=== PATIENT | male | born 1955 | race American Indian/Alaskan Native ===

== ENCOUNTER 2017-09-03 08:40 | Inpatient (IN) | payer MEDICARE ==
--- NOTE | 2017-09-03 10:25 | XRay Report ---
ROUTINE CHEST, TWO VIEWS: HISTORY: Shortness of breath. No comparison. Previous CABG changes. Borderline to mild cardiomegaly and small bilateral pleural effusions are identified. Pulmonary vascularity is within normal limits. Mild atelectatic changes are noted in both lower lobes. No convincing pneumonia or pneumothorax. The bony structures are grossly intact. IMPRESSION: Mild CHF. Mild bibasilar atelectasis.
[2017-09-03 10:49] LABS: Hematocrit 38.4 % (35.5-45.6); Hemoglobin 11.9 gm/dl (11.8-15.2); Mean Corpuscular HGB Conc 31 % (32-34); Mean Corpuscular Volume 83 fl (84-94); Platelet Count 140 K/mm3 (140-440); Red Blood Count 4.65 M/mm3 (3.65-5.03); Red Cell Distribution Width 16.7 % (13.2-15.2)
[2017-09-03 10:51] LABS: Mean Corpuscular Hemoglobin 26 pg (28-32)
[2017-09-03 11:01] LABS: Calcium 9.2 mg/dL (8.4-10.2)
[2017-09-03] MEDS ORDERED: LASIX IV ONE (11:16)
[2017-09-03] MEDS ORDERED: APRESOLINE IV ONE ×2 (11:16→14:18)
[2017-09-03 12:47] LABS: Total Cells Counted 100
[2017-09-03 12:48] LABS: Platelet Estimate Consistent w Auto; Poikilocytosis 1+; Target Cells Rare
[2017-09-03] MEDS ORDERED: BABY ASPIRIN PO ONE (14:19)
--- NOTE | 2017-09-03 14:19 | Emergency Department Report ---
HPI - General Chief Complaint: Dyspnea/Respdistress Time Seen by Provider: 09/03/17 10:48 - HPI HPI: The patient is a 61-year-old male who presents for evaluation of dyspnea. The patient has a history of congestive heart failure. The patient reports constant and severe dyspnea for the past one day, exacerbated with exertion or lying flat, improved with sitting up. He also reports associated bilateral lower leg swelling. The patient has fever, trauma to the chest, syncope, hemoptysis, unilateral leg swelling, recent immobilization, history of DVT or PE , hx of recent cancer. ED Past Medical Hx - Past Medical History Previous Medical History?: Yes Hx Hypertension: Yes Hx CVA: Yes (11/2016) Hx Heart Attack/AMI: Yes (bypass x5, stents x3) - Surgical History Past Surgical History?: No - Social History Smoking Status: Never Smoker Substance Use Type: None ED Review of Systems ROS: Stated complaint: DIFFICULTY BREATHING Other details as noted in HPI Constitutional: denies: fever ENT: denies: throat or neck pain Respiratory: reports shortness of breath Cardiovascular: denies: chest pain Endocrine: denies unexplained weight loss or gain Gastrointestinal: denies: abdominal pain, nausea Genitourinary: denies: dysuria Musculoskeletal: reports leg swelling Skin: denies: rash Neurological: denies: headache Hematological/Lymphatic: denies: easy bleeding or easy bruising Psych: denies sadness or hopelessness Physical Exam - Physical Exam Vital Signs: Vital Signs 09/03/17 09/03/17 09/03/17 09:22 09:50 11:45 Temperature 98 F 97.8 F Pulse Rate 56 L 55 L 55 L Respiratory 18 16 Rate Blood Pressure 157/109 160/107 Blood Pressure 168/108 [Left] O2 Sat by Pulse 95 100 Oximetry Physical Exam: General: well-nourished, well-developed, no acute distress Head: Normocephalic, atraumatic Eyes: normal sclera ENT: Mucous membranes are pale and dry Neck: No neck stiffness, no cervical adenopathy Respiratory: Diminished breath sounds and bibasilar crackles present, no costal traction, no respiratory distress Cardio: S1 and S2 present, no murmurs, rubs, gallops, capillary refill is delayed Abdomen: Normoactive bowel sounds, soft abdomen, no rigidity, no guarding or rebound tenderness Chest WALL/Back: No tenderness to palpation of the chest wall, no CVA tenderness with percussion Musc: 1+ pitting edema of bilateral legs present Skin: No rash Neuro: no facial drooping, normal speech Psych: Normal affect ED Course Vital Signs 09/03/17 09/03/17 09/03/17 09:22 09:50 11:45 Temperature 98 F 97.8 F Pulse Rate 56 L 55 L 55 L Respiratory 18 16 Rate Blood Pressure 157/109 160/107 Blood Pressure 168/108 [Left] O2 Sat by Pulse 95 100 Oximetry ED Medical Decision Making - Lab Data Result diagrams: 09/03/17 10:09 09/03/17 10:09 - Medical Decision Making The patient was seen and examined by myself. The patient is placed on a cafeteria monitor and continuous pulse ox. On initial evaluation, the patient was found to be in no distress. EKG was negative for findings suggestive of acute cardiac infarct. The patient is given IV hydralazine for elevated blood pressure. Labs and imaging are obtained. Chest x-ray exhibits pulmonary vascular congestion consistent with acute congestive heart failure. Lab results exhibit elevated BNP, and otherwise are were non-revealing including negative troponin, WBC, hemogloin. The patient is given IV Lasix for treatment of his congestive heart failure. Reevaluation the patient remained symptomatic with elevated blood pressure. The patient given additional IV hydralazine. As patient remained symptomatic. Admitted for continued diuresis, close monitoring , and potential evaluation by cardiology. The on-call hospitalist service was contacted. Dr. Purvis agreed to admit the patient for further treatment and close monitoring. The ED admit order was placed. The patient was admitted in guarded condition. Critical care attestation.: If time is entered above; I have spent that time in minutes in the direct care of this critically ill patient, excluding procedure time. ED Disposition Clinical Impression: Acute systolic congestive heart failure, Hypertensive emergency Disposition: OP ADMIT IP TO THIS HOSP Is pt being admited?: Yes Does the pt Need Aspirin: Yes Condition: Stable Instructions: Heart Failure (ED), Hypertension (ED) Referrals: PRIMARY CARE, [Primary Care Provider] - 3-5 Days Time of Disposition: 13:18
--- NOTE | 2017-09-03 22:56 | History and Physical Report ---
History of Present Illness Date of examination: 09/03/17 Date of admission: 09/03/17 15:40 Chief complaint: Chief complaint: Increasing shortness of breath for the last 2 days History of present illness: ORESTES: 51-year-old male comes in for increasing shortness of breath for the last 1 day. Patient is a history of coronary artery disease cerebrovascular accident and hypertension. Patient with increasing shortness of breath over the last 2 days. Patient is class IV symptoms of NYHA. Also orthopneic. No cough no fever no chills. No chest pain. Past Medical History Previous Medical History?: Yes Hx Hypertension: Yes Hx CVA: Yes (11/2016) Hx Heart Attack/AMI: Yes (bypass x5, stents x3) Surgical History Past Surgical History?: No Social History Smoking Status: Never Smoker Substance Use Type: None Family History Htn Review of Systems ROS: Stated complaint: DIFFICULTY BREATHING Other details as noted in HPI Constitutional: denies: fever ENT: denies: throat or neck pain Respiratory: reports shortness of breath Cardiovascular: denies: chest pain Endocrine: denies unexplained weight loss or gain Gastrointestinal: denies: abdominal pain, nausea Genitourinary: denies: dysuria Musculoskeletal: reports leg swelling Skin: denies: rash Neurological: denies: headache Hematological/Lymphatic: denies: easy bleeding or easy bruising Psych: denies sadness or hopelessness Medications and Allergies Allergies Allergy/AdvReac Type Severity Reaction Status Date / Time No Known Allergies Allergy Unverified 09/03/17 09:28 Exam - Physical Exam Narrative exam: Lying in bed in slight distress - Constitutional Vitals: Temp Pulse Resp BP Pulse Ox 98.1 F 58 L 20 138/91 99 09/03/17 19:50 09/03/17 19:50 09/03/17 19:50 09/03/17 19:50 09/03/17 19:50 General appearance: Present: no acute distress, mild distress, well-nourished - EENT Eyes: Present: PERRL ENT: hearing intact, clear oral mucosa - Neck Neck: Present: supple, normal ROM - Respiratory Respiratory effort: normal Respiratory: bilateral: CTA, rales, rhonchi - Cardiovascular Heart rate: 80 Rhythm: regular Heart Sounds: Present: S1 & S2. Absent: rub, click - Extremities Extremities: no ischemia, pulses intact, pulses symmetrical, No edema Peripheral Pulses: within normal limits - Abdominal General gastrointestinal: Present: soft, non-tender, non-distended, normal bowel sounds Male genitourinary: Present: normal - Rectal Rectal Exam: deferred - Integumentary Integumentary: Present: clear, warm, dry - Musculoskeletal Musculoskeletal: gait normal, strength equal bilaterally - Psychiatric Psychiatric: appropriate mood/affect, intact judgment & insight - Neurologic Neurologic: CNII-XII intact, moves all extremities - Allied Health Allied health notes reviewed: nursing, case management Results - Labs CBC & Chem 7: 09/03/17 10:09 09/03/17 10:09 Labs: Laboratory Last Values WBC 4.8 K/mm3 (4.5-11.0) 09/03/17 10:09 RBC 4.65 M/mm3 (3.65-5.03) 09/03/17 10:09 Hgb 11.9 gm/dl (11.8-15.2) 09/03/17 10:09 Hct 38.4 % (35.5-45.6) 09/03/17 10:09 MCV 83 fl (84-94) L 09/03/17 10:09 MCH 26 pg (28-32) L 09/03/17 10:09 MCHC 31 % (32-34) L 09/03/17 10:09 RDW 16.7 % (13.2-15.2) H 09/03/17 10:09 Plt Count 140 K/mm3 (140-440) 09/03/17 10:09 Lewis % (Auto) Ethnographic Materials Conservator 09/03/17 10:09 Add Manual Diff Complete 09/03/17 10:09 Total Counted 100 09/03/17 10:09 Seg Neuts % (Manual) 73.0 % (40.0-70.0) H 09/03/17 10:09 Band Neutrophils % 0 % 09/03/17 10:09 Lymphocytes % (Manual) 15.0 % (13.4-35.0) 09/03/17 10:09 Reactive Lymphs % (Man) 1.0 % 09/03/17 10:09 Monocytes % (Manual) 8.0 % (0.0-7.3) H 09/03/17 10:09 Eosinophils % (Manual) 2.0 % (0.0-4.3) 09/03/17 10:09 Basophils % (Manual) 1.0 % (0.0-1.8) 09/03/17 10:09 Metamyelocytes % 0 % 09/03/17 10:09 Myelocytes % 0 % 09/03/17 10:09 Promyelocytes % 0 % 09/03/17 10:09 Blast Cells % 0 % 09/03/17 10:09 Nucleated RBC % Not Reportable 09/03/17 10:09 Seg Neutrophils # Man 3.5 K/mm3 (1.8-7.7) 09/03/17 10:09 Band Neutrophils # 0.0 K/mm3 09/03/17 10:09 Lymphocytes # (Manual) 0.7 K/mm3 (1.2-5.4) L 09/03/17 10:09 Abs React Lymphs (Man) 0.0 K/mm3 09/03/17 10:09 Monocytes # (Manual) 0.4 K/mm3 (0.0-0.8) 09/03/17 10:09 Eosinophils # (Manual) 0.1 K/mm3 (0.0-0.4) 09/03/17 10:09 Basophils # (Manual) 0.0 K/mm3 (0.0-0.1) 09/03/17 10:09 Metamyelocytes # 0.0 K/mm3 09/03/17 10:09 Myelocytes # 0.0 K/mm3 09/03/17 10:09 Promyelocytes # 0.0 K/mm3 09/03/17 10:09 Blast Cells # 0.0 K/mm3 09/03/17 10:09 WBC Morphology Not Reportable 09/03/17 10:09 Hypersegmented Neuts Not Reportable 09/03/17 10:09 Hyposegmented Neuts Not Reportable 09/03/17 10:09 Hypogranular Neuts Not Reportable 09/03/17 10:09 Smudge Cells Not Reportable 09/03/17 10:09 Toxic Granulation Not Reportable 09/03/17 10:09 Toxic Vacuolation Not Reportable 09/03/17 10:09 Dohle Bodies Not Reportable 09/03/17 10:09 Pelger-Huet Anomaly Not Reportable 09/03/17 10:09 Cindy Rods Not Reportable 09/03/17 10:09 Platelet Estimate Consistent w auto 09/03/17 10:09 Clumped Platelets Not Reportable 09/03/17 10:09 Plt Clumps, EDTA Not Reportable 09/03/17 10:09 Large Platelets Not Reportable 09/03/17 10:09 Giant Platelets Not Reportable 09/03/17 10:09 Platelet Satelliting Not Reportable 09/03/17 10:09 Plt Morphology Comment Not Reportable 09/03/17 10:09 RBC Morphology Not Reportable 09/03/17 10:09 Dimorphic RBCs Not Reportable 09/03/17 10:09 Polychromasia Not Reportable 09/03/17 10:09 Hypochromasia Not Reportable 09/03/17 10:09 Poikilocytosis 1+ 09/03/17 10:09 Anisocytosis Not Reportable 09/03/17 10:09 Microcytosis Few 09/03/17 10:09 Macrocytosis Not Reportable 09/03/17 10:09 Spherocytes Not Reportable 09/03/17 10:09 Pappenheimer Bodies Not Reportable 09/03/17 10:09 Sickle Cells Not Reportable 09/03/17 10:09 Target Cells Rare 09/03/17 10:09 Tear Drop Cells Not Reportable 09/03/17 10:09 Ovalocytes Not Reportable 09/03/17 10:09 Helmet Cells Not Reportable 09/03/17 10:09 [place] Bodies Not Reportable 09/03/17 10:09 [place] Rings Not Reportable 09/03/17 10:09 Max Cells Not Reportable 09/03/17 10:09 Bite Cells Not Reportable 09/03/17 10:09 Crenated Cell Not Reportable 09/03/17 10:09 Elliptocytes Not Reportable 09/03/17 10:09 Acanthocytes (Spur) Not Reportable 09/03/17 10:09 Rouleaux Not Reportable 09/03/17 10:09 Hemoglobin C Crystals Not Reportable 09/03/17 10:09 Schistocytes Not Reportable 09/03/17 10:09 Malaria parasites Not Reportable 09/03/17 10:09 Lefty Bodies Not Reportable 09/03/17 10:09 Hem Pathologist Commnt No 09/03/17 10:09 Sodium 137 mmol/L (137-145) 09/03/17 10:09 Potassium 4.8 mmol/L (3.6-5.0) 09/03/17 10:09 Chloride 104.0 mmol/L (98-107) 09/03/17 10:09 Carbon Dioxide 18 mmol/L (22-30) L 09/03/17 10:09 Anion Gap 20 mmol/L 09/03/17 10:09 BUN 32 mg/dL (9-20) H 09/03/17 10:09 Creatinine 1.5 mg/dL (0.8-1.5) 09/03/17 10:09 Estimated GFR 47 ml/min 09/03/17 10:09 BUN/Creatinine Ratio 21 % 09/03/17 10:09 Glucose 86 mg/dL (75-100) 09/03/17 10:09 POC Glucose 66 (70-105) L 09/03/17 17:24 Calcium 9.2 mg/dL (8.4-10.2) 09/03/17 10:09 Troponin T < 0.010 ng/mL (0.00-0.029) 09/03/17 15:01 NT-Pro-B Natriuret Pep 9004 pg/mL (0-900) H 09/03/17 15:01 - Imaging and Cardiology EKG: report reviewed (sinus tachycardia) Imaging and Cardiology: Chest x-ray Mild CHF Mild bibasilar atelectasis Assessment and Plan Advance Directives: Yes (full code) VTE prophylaxis?: Chemical Plan of care discussed with patient/family: Yes - Patient Problems (1) Acute exacerbation of CHF (congestive heart failure) Current Visit: Yes Status: Acute Qualifiers: Heart failure type: diastolic Qualified Code(s): I50.33 - Acute on chronic diastolic (congestive) heart failure Plan to address problem: Acute diastolic heart failure IV Lasix 40 mg every 12 Echocardiogram for ejection fraction and wall motion abnormalities Cardiology consult (2) Hypertensive emergency Current Visit: Yes Status: Acute Plan to address problem: And losartan Coreg and hydralazine when necessary IV (3) History of cerebrovascular accident Current Visit: Yes Status: Chronic Plan to address problem: Physical therapy continue aspirin (4) DVT prophylaxis Current Visit: Yes Status: Acute Plan to address problem: On heparin subcutaneously
[2017-09-03] MEDS ORDERED: TYLENOL PO PRN (23:16)
[2017-09-03] MEDS ORDERED: MORPHINE IV PRN (23:16)
[2017-09-03] MEDS ORDERED: SODIUM CHLORIDE FLUSH SYRINGE 10 ML IV PRN (23:16)
[2017-09-03] MEDS ORDERED: ZOFRAN IV PRN (23:16)
[2017-09-03] MEDS ORDERED: PERCOCET 5/325 PO PRN (23:16)
[2017-09-03] MEDS ORDERED: APRESOLINE IV PRN (23:20)
[2017-09-03] MEDS ORDERED: AMBIEN PO PRN (23:30)
[2017-09-04] MEDS: COREG PO SCH ×3 (00:46→22:21)
[2017-09-04] MEDS: K-DUR PO SCH ×2 (00:47→12:00)
[2017-09-04] MEDS: LASIX IV SCH ×2 (05:54→18:47)
[2017-09-04 09:18] LABS: Basophils % (Auto) 0.8 % (0.0-1.8); Eosinophils # (Auto) 0.1 K/mm3 (0.0-0.4); Eosinophils % (Auto) 2.5 % (0.0-4.3); Hematocrit 39.2 % (35.5-45.6); Hemoglobin 12.2 gm/dl (11.8-15.2); Lymphocytes # (Auto) 0.6 K/mm3 (1.2-5.4); Lymphocytes % (Auto) 13.9 % (13.4-35.0); Mean Corpuscular HGB Conc 31 % (32-34); Mean Corpuscular Volume 80 fl (84-94); Monocytes # (Auto) 0.5 K/mm3 (0.0-0.8); Monocytes % (Auto) 13.3 % (0.0-7.3); Platelet Count 150 K/mm3 (140-440); Red Blood Count 4.89 M/mm3 (3.65-5.03); Red Cell Distribution Width 16.5 % (13.2-15.2)
[2017-09-04 09:42] LABS: Mean Corpuscular Hemoglobin 25 pg (28-32)
[2017-09-04] MEDS ORDERED: SODIUM CHLORIDE FLUSH SYRINGE 10 ML IV SCH (10:00)
[2017-09-04] MEDS: HEPARIN SUB-Q SCH ×2 (10:00→22:21)
[2017-09-04] MEDS ORDERED: COZAAR PO SCH (10:00)
[2017-09-04] MEDS: PEPCID PO SCH ×2 (10:00→22:21)
[2017-09-04 10:02] LABS: Albumin 3.2 g/dL (3.9-5); Calcium 9.5 mg/dL (8.4-10.2)
--- NOTE | 2017-09-04 10:23 | Consultation ---
History of Present Illness Consult date: 09/04/17 Requesting physician: PAOLA ADAN Consult reason: congestive heart failure History of present illness: The pt is a 61 YO male with a past medical history significant for CAD s/p CO with PCI and subsequent CABG x 5 in 11/2016 in [place], CVA in 11/2016 ( postoperatively following CABG) with residual right-sided weakness, HTN, HLP, DM , former smoker. He is previously unknown to our practice. He currently resides in [place] and is on vacation in [place] visiting his family. He presented with c/o progressively worsening SOB, AYERS, orthopnea and edema for 2 weeks prior to arrival. He denies any chest pain, palpitations, n/v, diaphoresis, dizziness or syncope. He reports compliance with his medication regimen but admits to eating fast food recently since he has been on vacation. CXR shows mild HF and mild bibasilar atelectasis. Pro-BNP >9000. Past History Past Medical History: CAD, diabetes, hypertension, hyperlipidemia, stroke Past Surgical History: CABG Social history: smoking (former). denies: alcohol abuse, prescription drug abuse Medications and Allergies Allergies Allergy/AdvReac Type Severity Reaction Status Date / Time No Known Allergies Allergy Unverified 09/03/17 09:28 Home Medications Medication Instructions Recorded Confirmed Last Taken Type No Known Home Medications [No 09/04/17 09/04/17 Unknown History Reported Home Medications] Active Meds: Active Medications Acetaminophen (Tylenol) 650 mg PO Q4H PRN PRN Reason: Pain MILD(1-3)/Fever >100.5/BOOTH Carvedilol (Coreg) 6.25 mg PO BID [facility] Last Admin: 09/04/17 00:46 Dose: 6.25 mg Famotidine (Pepcid) 20 mg PO BID [facility] Furosemide (Lasix) 40 mg IV 0600,1800 [facility] Last Admin: 09/04/17 05:54 Dose: 40 mg Heparin Sodium (Porcine) (Heparin) 5,000 unit SUB-Q Q12HR SURJIT Hydralazine HCl (Apresoline) 10 mg IV Q3H PRN PRN Reason: Hypertension Losartan Potassium (Cozaar) 100 mg PO QDAY [facility] Morphine Sulfate (Morphine) 2 mg IV Q4H PRN PRN Reason: Pain, Moderate (4-6) Ondansetron HCl (Zofran) 4 mg IV Q8H PRN PRN Reason: Nausea And Vomiting Oxycodone/Acetaminophen (Percocet 5/325) 1 tab PO Q6H PRN PRN Reason: Pain, Moderate (4-6) Potassium Chloride (K-Dur) 20 meq PO Q12H [facility] Last Admin: 09/04/17 00:47 Dose: Not Given Sodium Chloride (Sodium Chloride Flush Syringe 10 Ml) 10 ml IV BID [facility] Sodium Chloride (Sodium Chloride Flush Syringe 10 Ml) 10 ml IV PRN PRN PRN Reason: LINE FLUSH Zolpidem Tartrate (Ambien) 5 mg PO QHS PRN PRN Reason: Insomnia Review of Systems Constitutional: no fever, no chills, no sweats Ears, nose, mouth and throat: no ear pain, no nose pain, no sinus pressure, no sinus pain Cardiovascular: orthopnea, edema, shortness of breath, dyspnea on exertion, paroxysmal nocturnal dyspnea, leg edema, decreased exercise tolerance, no chest pain, no palpitations, no rapid/irregular heart beat, no syncope, no lightheadedness Respiratory: shortness of breath, dyspnea on exertion, no cough, no congestion, no wheezing, no pain on inspiration Gastrointestinal: no abdominal pain, no nausea, no vomiting, no diarrhea, no constipation, no change in bowel habits Genitourinary Male: no dysuria, no hematuria, no flank pain, no discharge, no urinary frequency, no urinary hesitancy Musculoskeletal: muscle weakness (right-sided s/p CVA), no neck stiffness, no neck pain, no shooting arm pain, no arm numbness/tingling, no low back pain, no shooting leg pain, no leg numbness/tingling, no redness of joints Integumentary: no rash, no pruritis, no redness, no sores, no wounds Neurological: weakness (right-sided s/p CVA), no head injury, no paralysis Psychiatric: no anxiety Endocrine: no cold intolerance, no heat intolerance Hematologic/Lymphatic: no easy bruising, no easy bleeding Allergic/Immunologic: no urticaria, no wheezing, no persistent infections Physical Examination Vital Signs Temp Pulse Resp BP Pulse Ox 98 F 56 L 18 157/109 95 09/03/17 09:22 09/03/17 09:22 09/03/17 09:22 09/03/17 09:22 09/03/17 09:22 General appearance: no acute distress HEENT: Positive: PERRL, Normocephaly, Mucus Membranes Moist Neck: Positive: neck supple, trachea midline Cardiac: Positive: Reg Rate and Rhythm, S1/S2 Lungs: Positive: Decreased Breath Sounds Abdomen: Positive: Soft. Negative: Tender Skin: Positive: Clear. Negative: Rash, Wound Musculoskeletal: No Pain, Normal Range of Motion Extremities: Present: +2 Edema (BLE (R>L)) Results 09/04/17 09:05 09/04/17 09:05 Cardiac Enzymes 09/04/17 Range/Units 09:05 AST 27 (5-40) units/L CBC 09/03/17 09/04/17 Range/Units 10:09 09:05 WBC 4.8 4.0 L (4.5-11.0) K/mm3 RBC 4.65 4.89 (3.65-5.03) M/mm3 Hgb 11.9 12.2 (11.8-15.2) gm/dl Hct 38.4 39.2 (35.5-45.6) % Plt Count 140 150 (140-440) K/mm3 Lymph # 0.6 L (1.2-5.4) K/mm3 Harlan # 0.5 (0.0-0.8) K/mm3 Eos # 0.1 (0.0-0.4) K/mm3 Baso # 0.0 (0.0-0.1) K/mm3 Comprehensive Metabolic Panel 09/03/17 09/04/17 Range/Units 10:09 09:05 Sodium 137 143 (137-145) mmol/L Potassium 4.8 3.8 D (3.6-5.0) mmol/L Chloride 104.0 106.7 (98-107) mmol/L Carbon Dioxide 18 L 22 (22-30) mmol/L BUN 32 H 29 H (9-20) mg/dL Creatinine 1.5 1.6 H (0.8-1.5) mg/dL Glucose 86 104 H (75-100) mg/dL Calcium 9.2 9.5 (8.4-10.2) mg/dL AST 27 (5-40) units/L ALT 42 (7-56) units/L Alkaline Phosphatase 97 (35-129) units/L Total Protein 6.5 (6.3-8.2) g/dL Albumin 3.2 L (3.9-5) g/dL - Imaging and Cardiology Echo: pending EKG: report reviewed, image reviewed EKG interpretations - Telemetry EKG Rhythm: Sinus Rhythm - EKG Sinus rhythms and dysrhythmias: sinus rhythm Myocardial infarction: inferior CO (old age inde Assessment and Plan Initiate ASA 81. Agree with all other present cardiac management. Obtain echo. Attempt to obtain medical records. Assessment and plan reviewed with pt at bedside. The patient has been seen in conjunction with Dr. Molina who agrees with the assessment and plan of care. - Patient Problems (1) Acute heart failure Current Visit: Yes Status: Acute (2) CAD (coronary artery disease) Current Visit: Yes Status: Chronic (3) History of coronary artery bypass graft Current Visit: Yes Status: Chronic (4) History of cerebrovascular accident Current Visit: Yes Status: Chronic (5) HTN (hypertension) Current Visit: Yes Status: Chronic (6) Diabetes Current Visit: Yes Status: Chronic (7) Renal insufficiency Current Visit: Yes Status: Acute (8) Sinus bradycardia Current Visit: Yes Status: Acute
[2017-09-04] MEDS ORDERED: BABY ASPIRIN PO SCH (11:00)
--- NOTE | 2017-09-04 20:08 | Progress Note ---
Assessment and Plan Assessment and plan: 51-year-old male comes in for increasing shortness of breath for the last 1 day. Patient is a history of coronary artery disease subsequent CABG x 5 in 2016 cerebrovascular accident with right sided weakness and hypertension, HTN, HLP, DM, former smoker. Patient with increasing shortness of breath over the last 2 days. Patient is class IV symptoms of NYHA. Also orthopneic. No cough no fever no chills. He reports compliance with his medication regimen but admits to eating fast food recently since he has been on vacation. CXR shows mild HF and mild bibasilar atelectasis. Pro-BNP >9000. Acute exacerbation of CHF (congestive heart failure)-Systolic and diastolic * IV Lasix 40 mg every 12 * Severe global LV hypokinesia, LVEF 20 to 25%, Trace pericardial effusion, Mod TR , Mild pulmonary hypertension. Discussed with the patient and his at bedside. * Cardiology input noted * ACEI. Correct home medication doses Hypertensive emergency * Losartan Coreg and hydralazine when necessary IV Right hemiparesis secondary to hx of cerebrovascular accident * Physical therapy continue aspirin Diabetes Mellitus * Resume home meds. Accuchecks AC/HS CKD * stable, monitor Sinus Darion * Defer to cardiology. No dizziness DVT/GI prophy History Interval history: Patient seen and examined in no acute distress. Hospitalist Physical - Constitutional Vitals: Temp Pulse Resp BP Pulse Ox 97.9 F 52 L 18 124/77 96 09/04/17 15:47 09/04/17 15:47 09/04/17 15:47 09/04/17 15:47 09/04/17 15:47 General appearance: Present: no acute distress, well-nourished - EENT Eyes: Present: PERRL, EOM intact ENT: hearing intact, clear oral mucosa - Neck Neck: Present: supple, normal ROM - Respiratory Respiratory effort: normal Respiratory: bilateral: CTA - Cardiovascular Rhythm: regular Heart Sounds: Present: S1 & S2, systolic murmur - Extremities Extremities: no ischemia, pulses intact, pulses symmetrical, No edema, normal temperature, normal color, Full ROM Extremity abnormal: edema (1 pulse) Peripheral Pulses: within normal limits - Abdominal General gastrointestinal: soft, non-tender, non-distended, normal bowel sounds - Integumentary Integumentary: Present: clear, warm, dry - Psychiatric Psychiatric: appropriate mood/affect, intact judgment & insight - Neurologic Neurologic: CNII-XII intact, moves all extremities - Allied Health Allied health notes reviewed: nursing Results - Labs CBC & Chem 7: 09/04/17 09:05 09/04/17 09:05 Labs: Laboratory Last Values WBC 4.0 K/mm3 (4.5-11.0) L 09/04/17 09:05 RBC 4.89 M/mm3 (3.65-5.03) 09/04/17 09:05 Hgb 12.2 gm/dl (11.8-15.2) 09/04/17 09:05 Hct 39.2 % (35.5-45.6) 09/04/17 09:05 MCV 80 fl (84-94) L 09/04/17 09:05 MCH 25 pg (28-32) L 09/04/17 09:05 MCHC 31 % (32-34) L 09/04/17 09:05 RDW 16.5 % (13.2-15.2) H 09/04/17 09:05 Plt Count 150 K/mm3 (140-440) 09/04/17 09:05 Lymph % (Auto) 13.9 % (13.4-35.0) 09/04/17 09:05 [place] % (Auto) 13.3 % (0.0-7.3) H 09/04/17 09:05 Eos % (Auto) 2.5 % (0.0-4.3) 09/04/17 09:05 Baso % (Auto) 0.8 % (0.0-1.8) 09/04/17 09:05 Lymph # 0.6 K/mm3 (1.2-5.4) L 09/04/17 09:05 [place] # 0.5 K/mm3 (0.0-0.8) 09/04/17 09:05 Eos # 0.1 K/mm3 (0.0-0.4) 09/04/17 09:05 Baso # 0.0 K/mm3 (0.0-0.1) 09/04/17 09:05 Add Manual Diff Complete 09/03/17 10:09 Total Counted 100 09/03/17 10:09 Seg Neutrophils % 69.5 % (40.0-70.0) 09/04/17 09:05 Seg Neuts % (Manual) 73.0 % (40.0-70.0) H 09/03/17 10:09 Band Neutrophils % 0 % 09/03/17 10:09 Lymphocytes % (Manual) 15.0 % (13.4-35.0) 09/03/17 10:09 Reactive Lymphs % (Man) 1.0 % 09/03/17 10:09 Monocytes % (Manual) 8.0 % (0.0-7.3) H 09/03/17 10:09 Eosinophils % (Manual) 2.0 % (0.0-4.3) 09/03/17 10:09 Basophils % (Manual) 1.0 % (0.0-1.8) 09/03/17 10:09 Metamyelocytes % 0 % 09/03/17 10:09 Myelocytes % 0 % 09/03/17 10:09 Promyelocytes % 0 % 09/03/17 10:09 Blast Cells % 0 % 09/03/17 10:09 Nucleated RBC % Not Reportable 09/03/17 10:09 Seg Neutrophils # 2.8 K/mm3 (1.8-7.7) 09/04/17 09:05 Seg Neutrophils # Man 3.5 K/mm3 (1.8-7.7) 09/03/17 10:09 Band Neutrophils # 0.0 K/mm3 09/03/17 10:09 Lymphocytes # (Manual) 0.7 K/mm3 (1.2-5.4) L 09/03/17 10:09 Abs React Lymphs (Man) 0.0 K/mm3 09/03/17 10:09 Monocytes # (Manual) 0.4 K/mm3 (0.0-0.8) 09/03/17 10:09 Eosinophils # (Manual) 0.1 K/mm3 (0.0-0.4) 09/03/17 10:09 Basophils # (Manual) 0.0 K/mm3 (0.0-0.1) 09/03/17 10:09 Metamyelocytes # 0.0 K/mm3 09/03/17 10:09 Myelocytes # 0.0 K/mm3 09/03/17 10:09 Promyelocytes # 0.0 K/mm3 09/03/17 10:09 Blast Cells # 0.0 K/mm3 09/03/17 10:09 WBC Morphology Not Reportable 09/03/17 10:09 Hypersegmented Neuts Not Reportable 09/03/17 10:09 Hyposegmented Neuts Not Reportable 09/03/17 10:09 Hypogranular Neuts Not Reportable 09/03/17 10:09 Smudge Cells Not Reportable 09/03/17 10:09 Toxic Granulation Not Reportable 09/03/17 10:09 Toxic Vacuolation Not Reportable 09/03/17 10:09 Dohle Bodies Not Reportable 09/03/17 10:09 Pelger-Huet Anomaly Not Reportable 09/03/17 10:09 Cindy Rods Not Reportable 09/03/17 10:09 Platelet Estimate Consistent w auto 09/03/17 10:09 Clumped Platelets Not Reportable 09/03/17 10:09 Plt Clumps, EDTA Not Reportable 09/03/17 10:09 Large Platelets Not Reportable 09/03/17 10:09 Giant Platelets Not Reportable 09/03/17 10:09 Platelet Satelliting Not Reportable 09/03/17 10:09 Plt Morphology Comment Not Reportable 09/03/17 10:09 RBC Morphology Not Reportable 09/03/17 10:09 Dimorphic RBCs Not Reportable 09/03/17 10:09 Polychromasia Not Reportable 09/03/17 10:09 Hypochromasia Not Reportable 09/03/17 10:09 Poikilocytosis 1+ 09/03/17 10:09 Anisocytosis Not Reportable 09/03/17 10:09 Microcytosis Few 09/03/17 10:09 Macrocytosis Not Reportable 09/03/17 10:09 Spherocytes Not Reportable 09/03/17 10:09 Pappenheimer Bodies Not Reportable 09/03/17 10:09 Sickle Cells Not Reportable 09/03/17 10:09 Target Cells Rare 09/03/17 10:09 Tear Drop Cells Not Reportable 09/03/17 10:09 Ovalocytes Not Reportable 09/03/17 10:09 Helmet Cells Not Reportable 09/03/17 10:09 [place] Bodies Not Reportable 09/03/17 10:09 [place] Rings Not Reportable 09/03/17 10:09 Max Cells Not Reportable 09/03/17 10:09 Bite Cells Not Reportable 09/03/17 10:09 Crenated Cell Not Reportable 09/03/17 10:09 Elliptocytes Not Reportable 09/03/17 10:09 Acanthocytes (Spur) Not Reportable 09/03/17 10:09 Rouleaux Not Reportable 09/03/17 10:09 Hemoglobin C Crystals Not Reportable 09/03/17 10:09 Schistocytes Not Reportable 09/03/17 10:09 Malaria parasites Not Reportable 09/03/17 10:09 Lefty Bodies Not Reportable 09/03/17 10:09 Hem Pathologist Commnt No 09/03/17 10:09 Sodium 143 mmol/L (137-145) 09/04/17 09:05 Potassium 3.8 mmol/L (3.6-5.0) D 09/04/17 09:05 Chloride 106.7 mmol/L (98-107) 09/04/17 09:05 Carbon Dioxide 22 mmol/L (22-30) 09/04/17 09:05 Anion Gap 18 mmol/L 09/04/17 09:05 BUN 29 mg/dL (9-20) H 09/04/17 09:05 Creatinine 1.6 mg/dL (0.8-1.5) H 09/04/17 09:05 Estimated GFR 53 ml/min 09/04/17 09:05 BUN/Creatinine Ratio 18 % 09/04/17 09:05 Glucose 104 mg/dL (75-100) H 09/04/17 09:05 POC Glucose 75 (70-105) 09/04/17 07:39 Hemoglobin A1c 6.2 % (4-6) H 09/03/17 00:44 Calcium 9.5 mg/dL (8.4-10.2) 09/04/17 09:05 Total Bilirubin 0.80 mg/dL (0.1-1.2) 09/04/17 09:05 AST 27 units/L (5-40) 09/04/17 09:05 ALT 42 units/L (7-56) 09/04/17 09:05 Alkaline Phosphatase 97 units/L (35-129) 09/04/17 09:05 Troponin T < 0.010 ng/mL (0.00-0.029) 09/04/17 09:05 NT-Pro-B Natriuret Pep 9004 pg/mL (0-900) H 09/03/17 15:01 Total Protein 6.5 g/dL (6.3-8.2) 09/04/17 09:05 Albumin 3.2 g/dL (3.9-5) L 09/04/17 09:05 Albumin/Globulin Ratio 1.0 % 09/04/17 09:05 - Imaging and Cardiology Chest x-ray: image reviewed (zoraida)
[2017-09-05] MEDS: K-DUR PO SCH (00:01)
[2017-09-05 05:28] VITALS: BP 135/84
[2017-09-05] MEDS: LASIX IV SCH (06:19)
[2017-09-05] MEDS ORDERED: PROzac PO SCH (10:00)
[2017-09-05] MEDS ORDERED: ZESTRIL PO SCH (10:00)
[2017-09-05] MEDS ORDERED: TOPROL XL PO SCH (10:00)
[2017-09-05] MEDS ORDERED: ALDACTONE PO SCH (10:00)
[2017-09-05] MEDS ORDERED: CORDARONE PO SCH (10:00)
[2017-09-05] MEDS ORDERED: TRADJENTA PO SCH ×2 (10:00)
[2017-09-05] MEDS ORDERED: XARELTO PO SCH (10:00)
--- NOTE | 2017-09-05 10:19 | Discharge Summary ---
Providers - Providers Date of Admission: 09/03/17 15:40 Attending physician: DEMOND COLEMAN MD 09/03/17 23:21 Consult to Physician [CONS] Routine Comment: Consulting Provider: LEWIS SIEGEL Physician Instructions: Reason For Exam: CHF Primary care physician: SYSTEM PLANNING ENGINEER Hospitalization Condition: Stable Hospital course: 51-year-old male comes in for increasing shortness of breath for the last 1 day. Patient is a history of coronary artery disease subsequent CABG x 5 in 2016 cerebrovascular accident with right sided weakness and hypertension, HTN, HLP, DM, former smoker. Patient with increasing shortness of breath over the last 2 days. Patient is class IV symptoms of NYHA. Also orthopneic. No cough no fever no chills. He reports compliance with his medication regimen but admits to eating fast food recently since he has been on vacation. CXR shows mild HF and mild bibasilar atelectasis. Pro-BNP >9000. Acute exacerbation of CHF (congestive heart failure)-Systolic and diastolic * IV Lasix 40 mg every 12 * Severe global LV hypokinesia, LVEF 20 to 25%, Trace pericardial effusion, Mod TR , Mild pulmonary hypertension. Discussed with the patient and his at bedside. * Cardiology input noted * ACEI. Correct home medication doses Hypertensive emergency * Losartan Coreg and hydralazine when necessary IV Right hemiparesis secondary to hx of cerebrovascular accident * Physical therapy continue aspirin Diabetes Mellitus * Resume home meds. Accuchecks AC/HS CKD * stable, monitor Sinus Darion * Defer to cardiology. No dizziness DVT/GI prophy Disposition: DC-01 TO HOME OR SELFCARE Time spent for discharge: 35 mins Core Measure Documentation - Palliative Care Palliative Care/ Comfort Measures: Not Applicable - Core Measures Any of the following diagnoses?: heart failure - VTE Discharge Requirements Deep Vein Thrombosis/Pulmonary Embolism Present on Admission: No - Heart Failure Discharge Requirements JERAD/ARB for LVSD if EF <40%: Yes Beta lilliam at discharge: Yes Exam - Constitutional Vitals: Temp Pulse Resp BP Pulse Ox 98.2 F 54 L 18 135/84 97 09/05/17 04:19 09/05/17 04:19 09/05/17 04:19 09/05/17 04:19 09/05/17 04:19 Plan Activity: advance as tolerated, fall precautions Diet: low cholesterol, low salt Special Instructions: record daily weights, record daily BP diary Additional Instructions: follow with primary digital pre press operator Follow up with: PRIMARY CARE, [Primary Care Provider] - 3-5 Days Prescriptions: Furosemide 40 mg PO DAILY #30
--- NOTE | 2017-09-05 11:25 | Progress Note ---
Assessment and Plan Echo reviewed - EF 20-25%, LV mildly dilated, severe global hypokinesis of the LV, LA mildly dilated, mod TR, mild pulm HTN with RVSP 41mmHg, mod pleural effusion. Medical records from [place] obtained and reviewed - CABG in 11/2016 confirmed, pt had EF 30-35% at that time. Currently stable cardiac status. Pt may discharge home from cardiology standpoint. At discharge, convert IV lasix to PO lasix 40mg daily. Cont all other present cardiac management. Recommend pt to follow up with his primary slab lifting engineer in [place] within 3-5 days of hospital discharge. Pt verbalizes understanding. The patient has been seen in conjunction with Dr. Molina who agrees with the assessment and plan of care. - Patient Problems (1) Acute systolic heart failure Current Visit: Yes Status: Acute (2) Cardiomyopathy Current Visit: Yes Status: Chronic (3) CAD (coronary artery disease) Current Visit: Yes Status: Chronic (4) History of coronary artery bypass graft Current Visit: Yes Status: Chronic (5) History of cerebrovascular accident Current Visit: Yes Status: Chronic (6) HTN (hypertension) Current Visit: Yes Status: Chronic (7) Diabetes Current Visit: Yes Status: Chronic (8) Renal insufficiency Current Visit: Yes Status: Acute (9) Sinus bradycardia Current Visit: Yes Status: Acute Subjective Date of service: 09/05/17 Principal diagnosis: HF Interval history: pt resting comfortably in bed, SOB and BLE edema improving. Objective Last Vital Signs Temp 98.2 F 09/05/17 04:19 Pulse 54 L 09/05/17 04:19 Resp 18 09/05/17 04:19 BP 135/84 09/05/17 04:19 Pulse Ox 97 09/05/17 04:19 - Physical Examination HEENT: Positive: PERRL, Normocephaly, Mucus Membranes Moist Neck: Positive: neck supple, trachea midline Cardiac: Positive: Reg Rate and Rhythm, S1/S2 Lungs: Positive: Decreased Breath Sounds Neuro: Positive: Grossly Intact Abdomen: Positive: Soft. Negative: Tender Skin: Positive: Clear. Negative: Rash, Wound Musculoskeletal: No Pain, Normal Range of Motion Extremities: Present: +1 Edema (BLE (R>L)) - Imaging and Cardiology EKG: report reviewed, image reviewed Echo: report reviewed - Telemetry EKG Rhythm: Sinus Rhythm - EKG Sinus rhythms and dysrhythmias: sinus rhythm Myocardial infarction: inferior DE (old age inde
[2017-09-05] MEDS ORDERED: LASIX PO ONE (11:52)
[2017-09-09] MEDS ORDERED: VITAMIN D2 PO SCH (18:05)
[2017-09-11] MEDS ORDERED: VITAMIN D3 PO SCH (10:00)
== END 2017-09-05 12:46 | disposition home or self-care (01) | DRG 291 ==
LOC: ED 08:40 → 4A 15:40
PROVIDERS: ADMIT Internal Medicine; ATTEND Internal Medicine
DX: I13.0 Hypertensive heart and chronic kidney disease with heart failure and stage 1 through stage 4 chronic kidney disease, or unspecified chronic kidney disease (principal); I50.43 Acute on chronic combined systolic (congestive) and diastolic (congestive) heart failure; I16.1 Hypertensive emergency; I69.351 Hemiplegia and hemiparesis following cerebral infarction affecting right dominant side; J90 Pleural effusion, not elsewhere classified; I25.2 Old myocardial infarction; I25.10 Atherosclerotic heart disease of native coronary artery without angina pectoris; I27.20 Pulmonary hypertension, unspecified; Z95.1 Presence of aortocoronary bypass graft; Z87.891 Personal history of nicotine dependence; R00.1 Bradycardia, unspecified; E11.22 Type 2 diabetes mellitus with diabetic chronic kidney disease; N18.9 Chronic kidney disease, unspecified; I42.9 Cardiomyopathy, unspecified
CPT/HCPCS: 36415; 71046; 80048; 80053; 82962; 83036; 83880; 84484; 85007; 85025; 93005; 93010; 93306; A9270-GY; J0360; J1644; J1940